=== PATIENT | male | born 1940 | race Caucasian/White ===

== ENCOUNTER → 2017-05-29 | Outpatient (CLI) | payer OTHER, MEDICARE | LOC: FIMAGING 12:25 | PROVIDERS: ATTEND Specialist | DX: K80.20 Calculus of gallbladder without cholecystitis without obstruction (principal); I87.2 Venous insufficiency (chronic) (peripheral); Z96.641 Presence of right artificial hip joint ==

== ENCOUNTER → 2017-07-24 | Outpatient (CLI) | payer OTHER, MEDICARE | LOC: FIMAGING 09:16 | PROVIDERS: ATTEND Physician Assistant Medical | DX: K80.20 Calculus of gallbladder without cholecystitis without obstruction (principal) ==

== ENCOUNTER → 2017-10-07 | Outpatient (CLI) | payer OTHER, MEDICARE | LOC: FIMAGING 09:21 | PROVIDERS: ATTEND Specialist | DX: K80.20 Calculus of gallbladder without cholecystitis without obstruction (principal) ==

== ENCOUNTER 2017-10-16 07:35 | Day surgery (SDC) | payer OTHER, MEDICARE ==
[2017-10-16] MEDS ORDERED: GLUCAGON HCL 1 MG VIAL IVP PRN (07:54)
[2017-10-16] MEDS ORDERED: PROTAMINE SULFATE 50 MG/5 ML VIAL IVP PRN (07:54)
[2017-10-16] MEDS ORDERED: NALOXONE HCL 0.4 MG/ML INJ IVP PRN (07:54)
[2017-10-16] MEDS ORDERED: MEPERIDINE 25 MG/ML SYR IVP PRN (07:54)
[2017-10-16] MEDS ORDERED: fentaNYL 100 MCG/2 ML INJ IVP PRN (07:54)
[2017-10-16] MEDS ORDERED: MIDAZOLAM 2 MG/2 ML VIAL IVP PRN (07:54)
[2017-10-16] MEDS ORDERED: HEPARIN 10,000 UNIT/10 ML MDV IVP PRN (07:54)
[2017-10-16] MEDS ORDERED: FLUMAZENIL 0.5 MG/5 ML MDV IVP PRN (07:54)
[2017-10-16] MEDS ORDERED: ALTEPLASE 2 MG VIAL IVP PRN (07:54)
[2017-10-16] MEDS ORDERED: NS 1,000 ML IV SCH (08:00)
[2017-10-16 08:29] LABS: HEMATOCRIT 41.2 % (40.0-51.0)
[2017-10-16 08:38] LABS: INR 1.11 (0.83-1.16); PROTIME(PATIENT) 14.5 SEC (12.0-15.0)
[2017-10-16 08:39] LABS: APTT 27.2 SEC (23.0-38.0)
--- NOTE | 2017-10-16 09:06 | PDGENHP ---
History & Physical Chief Complaint: Left kidney stone History of Present Illness: Bilateral renal stones and staghorn left renal calculus Pertinent Past, Social, Family History: Orthopedic surgery 3 years ago Cardiorespiratory Assessment: Lungs: clear. Heart: RRR no murmur; 72 bpm.
--- NOTE | 2017-10-16 09:07 | PDPROPOC ---
Sedation Plan of Care Sedation Plan of Care: vital signs stable, mental status noted, patient educated of risks, benefits, alternatives, patient can tolerate sedation ASA Classification: ASA 2 Planned drugs: fentanyl Mallampati Score: Class 3 Mallampati Reference Image: Patient passed 3-3-2 rule?: Yes
[2017-10-16] MEDS ORDERED: IOPAMIDOL (ISOVUE-300) 100 ML BTL ONE (10:20)
[2017-10-16] MEDS ORDERED: IOPAMIDOL (ISOVUE-370) 150 ML BTL IV ONE (10:21)
[2017-10-16 10:37] VITALS: RESP 14
[2017-10-16 10:59] VITALS: TEMP 97.7
[2017-10-16] MEDS ORDERED: ACETAMINOPHEN 325 MG TAB PO PRN (11:19)
[2017-10-16] MEDS ORDERED: ONDANSETRON 4 MG/2 ML VIAL IVP PRN (11:19)
--- NOTE | 2017-10-16 11:19 | PDRADPN ---
Radiology Procedure Note Date of Procedure: 10/16/17 Radiologist: Ricardo Hand Anesthesia: Other (Specify) (IV fentanyl only) Pre-op Diagnosis: Left renal stone Post-op Diagnosis: same Indication: UTI. Access needed for percutaneous nephrostolithotomy (tomorrow). Procedure: Percutaneous left nephrostomy Finding(s): Left Neph tube in good position. Inf/Abcess present in the surg proc area at time of surgery?: No EBL: Minimal Complications: 0 Drains: Nephrostomy (10 F) Specimen(s): 0
[2017-10-16 11:43] VITALS: O2SAT 93
[2017-10-16 12:44] VITALS: BP 121/74; PULSE 68
== END 2017-10-16 13:10 | disposition home or self-care (01) ==
LOC: FIMAGING 07:35
PROVIDERS: ATTEND Radiology Diagnostic Radiology
PROC: 0T9430Z Drainage of Left Kidney Pelvis with Drainage Device, Percutaneous Approach (ICD-10-PCS; principal; 2017-10-16)
PROC: BT1F1ZZ Fluoroscopy of Left Kidney, Ureter and Bladder using Low Osmolar Contrast (ICD-10-PCS; principal; 2017-10-16)
DX: N20.0 Calculus of kidney (principal); N39.0 Urinary tract infection, site not specified; E11.9 Type 2 diabetes mellitus without complications; Z79.84 Long term (current) use of oral hypoglycemic drugs
CPT/HCPCS: 50432; 99152; C1729; C1769; J0696; J1644; J2310; J3010; Q9967

== ENCOUNTER 2017-10-17 06:29 | Observation (INO) | payer OTHER, MEDICARE ==
[2017-10-17] MEDS ORDERED: LR 1,000 ML IV ONE (06:53)
[2017-10-17] MEDS ORDERED: MINERAL OIL 10 ML VIAL ONE (07:37)
[2017-10-17] MEDS ORDERED: IOPAMIDOL (ISOVUE-300) 100 ML BTL ONE (07:37)
--- NOTE | 2017-10-17 07:42 | PDANEPAE ---
ANE Past Medical History - Cardiovascular History Hx Hypertension: Yes Hx Arrhythmias: No Hx Chest Pain: No Hx Coronary Artery / Peripheral Vascular Disease: No Hx CHF / Valvular Disease: No Hx Palpitations: No - Pulmonary History Hx COPD: No Hx Asthma/Reactive Airway Disease: No Hx Recent Upper Respiratory Infection: No Hx Oxygen in Use at Home: No Hx Sleep Apnea: Yes Sleep Apnea Screening Result - Last Documented: Positive - Neurologic History Hx Cerebrovascular Accident: No Hx Seizures: No Hx Dementia: No - Endocrine History Hx Diabetes: Yes Obesity: yes - Renal History Hx Renal Disorders: Yes Renal History Comment: left kidney stones - Liver History Hx Hepatic Disorders: No - Neurological & Psychiatric Hx Hx Neurological and Psychiatric Disorders: No - Cancer History Hx Cancer: Yes Cancer History Comment: forehead basal cell - Congenital Disorder History Hx Congenital Disorders: No - GI History GERD: no Hx Gastrointestinal Disorders: No - Other Health History Other Health History: bruises easily - Chronic Pain History Chronic Pain: No - Surgical History Prior Surgeries: R shoulder surgery. R hip replacement ANE Review of Systems Review of systems is: negative Review of Systems: - Exercise capacity METS (RN): 5 METS ANE Patient History - Allergies Allergies/Adverse Reactions: Sulfa (Sulfonamide Antibiotics) Allergy (Mild, Verified 10/11/17 13:57) Rash midazolam [From Versed] Allergy (Verified 10/11/17 14:12) Other-Enter Comments - Home Medications Home medications: home medication list seen and reviewed Home Medications: Flurbiprofen 100 mg PO DAILY PRN 09/10/17 [Last Taken 10/15/17] Herbals/Supplements -Info Only 1 ea PO BID 09/10/17 [Last Taken 10/10/17] Lisinopril [Zestril 10 mg (*)] 10 mg PO DAILY 09/10/17 [Last Taken 10/17/17] Multivitamins [Multivitamin (*)] 1 each PO DAILY 09/10/17 [Last Taken 10/10/17] glipiZIDE [Glucotrol] 5 mg PO DAILY 09/10/17 [Last Taken 10/17/17] metFORMIN HCL [Glucophage 500 mg (*)] 1,000 mg PO BIDMEAL 09/10/17 [Last Taken 10/17/17] - NPO status NPO Since - Liquids (Date): 10/16/17 NPO Since - Liquids (Time): 20:00 NPO Since - Solids (Date): 10/16/17 NPO Since - Solids (Time): 19:00 - Anes Hx Anes Hx: no prior problems - Smoking Hx Smoking Status: Former smoker - Family Anes Hx Family Hx Anesthesia Complications: denies ANE Labs/Vital Signs - Vital Signs Blood Pressure: 161/87 Heart Rate: 95 Respiratory Rate: 18 O2 Sat (%): 93 Height: 179.07 cm Weight: 87.09 kg ANE Physical Exam - Airway Neck exam: FROM Mallampati Score: Class 1 Mouth exam: normal dental/mouth exam - Pulmonary Pulmonary: no respiratory distress - Cardiovascular Cardiovascular: regular rate and rhythym - ASA Status ASA Status: III ANE Anesthesia Plan Anesthesia Plan: general endotracheal anesthesia
[2017-10-17] MEDS ORDERED: levOFLOXACIN 500 MG/DEXTROSE 100 ML IV ONE (07:47)
[2017-10-17] MEDS ORDERED: fentaNYL 250 MCG/5 ML INJ ONE (07:48)
[2017-10-17] MEDS ORDERED: PROPOFOL 200 MG/20 ML VIAL ONE (07:48)
[2017-10-17] MEDS ORDERED: ROCURONIUM 100 MG/10 ML VIAL ONE (07:53)
[2017-10-17] MEDS ORDERED: SUGAMMADEX SODIUM 200 MG/2 ML VIAL IVP ONE (07:54)
[2017-10-17] MEDS ORDERED: ONDANSETRON 4 MG/2 ML VIAL ONE (07:54)
--- NOTE | 2017-10-17 09:01 | POSTOPPROG ---
Post Op Note Date of Operation: 10/17/17 Surgeon: Ivan Ken (# [id number]) Anesthesia: GET(General Endotracheal) Pre-op Diagnosis: 2.5 cm left renal calculus Post-op Diagnosis: 2.5 cm left renal calculus Procedure: 1. PCNL w/ fluoro guidance 2. Left neph. tube placement Findings: See op note Inf/Abcess present in the surg proc area at time of surgery?: No Drains: Nephrostomy (left 14 Fr.) Specimen(s): Left renal calculus fragments
[2017-10-17] MEDS ORDERED: HYDROCODONE/APAP 5/325 TAB PO PRN (09:51)
[2017-10-17] MEDS ORDERED: NALOXONE HCL 0.4 MG/ML INJ IVP PRN (09:51)
[2017-10-17] MEDS ORDERED: ONDANSETRON 4 MG/2 ML VIAL IVP PRN (09:51)
[2017-10-17] MEDS ORDERED: PROMETHAZINE HCL 25 MG/ML INJ IVP PRN (09:51)
[2017-10-17] MEDS ORDERED: ACETAMINOPHEN 500 MG TAB PO PRN (09:51)
[2017-10-17] MEDS ORDERED: HYDROmorphONE/DILAUDID 1 MG/ML INJ IVP PRN ×2 (09:51→11:30)
[2017-10-17] MEDS ORDERED: ALBUTEROL 3 ML DEYVIAL IH PRN (09:51)
[2017-10-17] MEDS ORDERED: OXYCODONE/APAP 5/325 TAB PO PRN (09:51)
--- NOTE | 2017-10-17 10:31 | PDHPUP ---
History & Physical Update H&P update statement: This history and physical update is based on an assessment of the patient which was completed after admission or registration (within 24 hours), but prior to the surgery/procedure. H&P update: no change in patient's condition since H&P completed
[2017-10-17] MEDS ORDERED: fentaNYL 100 MCG/2 ML INJ ONE (10:47)
[2017-10-17] MEDS: fentaNYL 100 MCG/2 ML INJ IVP PRN ×2 (10:48→10:59)
[2017-10-17 10:57] LABS: % IMMATURE GRANULYOCYTES 0.4 % (0.0-1.1); ABSOLUTE IMMATURE GRANULOCYTES 0.04 10^3/uL (0.00-0.10); ADD DIFF? NO; ADD MORPH? NO; ADD SCAN? NO; ATYPICAL LYMPHOCYTE FLAG 0 (0-99); FRAGMENT RBC FLAG 0 (0-99); HEMATOCRIT 37.6 % (40.0-51.0); HEMOGLOBIN 13.1 g/dL (13.7-17.5); LEFT SHIFT FLG 0 (0-99); LIPEMIA HEMOLYSIS FLAG 90 (0-99); MEAN CELL HEMOGLOBIN 32.1 pg (27.9-34.1); MEAN CELL HEMOGLOBIN CONCENTR. 34.8 g/dL (32.4-36.7); MEAN CELL VOLUME 92.2 fL (81.5-99.8); MEAN PLATELET VOLUME 9.6 fL (8.7-11.7); PLATELET CLUMPS FLAG 40 (0-99); PLATELET COUNT 98 10^3/uL (150-400); RED BLOOD CELL COUNT 4.08 10^6/uL (4.40-6.38); RED CELL DISTRIBUTION WIDTH 13.4 % (11.5-15.2)
[2017-10-17] MEDS: INSULIN REGULAR HUMAN 100 UNIT/ML SC SCH ×3 (12:35→21:45)
[2017-10-17] MEDS: NS 1,000 ML IV SCH ×2 (12:58→17:56)
[2017-10-17] MEDS: OXYCODONE/APAP 5/325 TAB PO PRN ×2 (16:46→20:55)
--- NOTE | 2017-10-17 19:29 | GOP ---
[f rep st] OPERATIVE REPORT DATE OF OPERATION: 10/17/2017 SURGEON: Ivan Ken MD ANESTHESIA: General endotracheal. PREOPERATIVE DIAGNOSIS: Approximately 2.5 cm left renal calculus. POSTOPERATIVE DIAGNOSIS: Approximately 2.5 cm left renal calculus. PROCEDURE PERFORMED: 1. Left-sided percutaneous nephrostolithotomy with intermittent fluoroscopic guidance greater than 1 hour. 2. Left-sided nephrostomy tube placement with fluoroscopic guidance. FINDINGS: Large left renal calculus. SPECIMENS: Left renal calculus fragments. ESTIMATED BLOOD LOSS: Less than 100 cc. INDICATIONS: This patient presented presents today for surgical management of his large left renal p elvic calculus. He underwent nephrostomy tube placement yesterday in Interventional Radiology in pre paration for today's surgery. The indications for the procedures as well as potential risks and comp lications were discussed with the patient preoperatively. He appeared to understand, his questions w ere answered, and he wished to proceed. Written informed surgical consent was thereafter obtained. DESCRIPTION OF PROCEDURE: The patient was brought to the operating room and administered general end otracheal anesthesia. A Can catheter was placed to gravity drainage. The patient was then placed carefully in the prone position. All appropriate pressure points were padded. The left-sided nephro stomy tube and surrounding portion of his back were sterilely prepped and draped in standard fashion. The nephrostomy tube was prepped into the field. Dr. Hand from Interventional Radiology then pro ceeded to place a balloon occlusion catheter in an antegrade fashion across the ureteropelvic junctio n, then placed a working 32-Burkinan nephroscopic sheath. I then started the operative portion of the procedure with a rigid nephroscope. The calculus was seen within the lower pole infundibulum and ext ending into the renal pelvis. The ultrasonic Lithotripter was used to perform lithotripsy on the [facility] [place]. All the fragments that were created and not evacuated through the ultrasonic Lithotripter were r emoved with rigid grasping forceps through the nephroscope unremarkably. Once all of the calculus navarro d been treated that could be seen through the rigid nephroscope, I inserted a flexible cystoscope and performed nephroscopy of all the visible calices. No residual stone fragments were seen. The scope was then removed and a 14-Burkinan nephrostomy tube placed under fluoroscopic guidance with a pigtail created in the renal pelvis. It should be mentioned that during the percutaneous nephrostolithotomy portion of the procedure, inte rmittent spot fluoroscopy was utilized as well. After placement of nephrostomy tube, the working nephroscopic sheath had already been removed. The b alloon occlusion catheter was also removed. All guidewires had been removed. Contrast was injected through the nephrostomy tube to confirm proper placement. It was then flushed appropriately without difficulty. A 3-0 silk stitch was used to secure the nephrostomy tube to the skin. The pigtail had already been locked by this point. The nephrostomy tube was dressed in standard fashion utilizing a ski slope dressing, 4x4s, and Tegaderm. The nephrostomy tube was connected to bag drainage. The pat ient was then carefully turned back over to the supine position. He was extubated, transferred to [facility] bed, then taken to the recovery room. He tolerated the procedure well overall. COMPLICATIONS: None. DRAINS: A 14-Burkinan left-sided nephrostomy tube. DISPOSITION: He was transferred to the recovery room in stable condition and will be admitted [facility] for postoperative care. /[id number]/MODL
[2017-10-17] MEDS ORDERED: 1/2 NS 1,000 ML IV SCH (19:30)
[2017-10-17] MEDS: metFORMIN HCL 500 MG TAB PO SCH (20:54)
[2017-10-18] MEDS: OXYCODONE/APAP 5/325 TAB PO PRN ×2 (04:14→11:18)
[2017-10-18 05:24] LABS: HEMOGLOBIN 13.5 g/dL (13.7-17.5); MEAN CELL HEMOGLOBIN 32.9 pg (27.9-34.1); MEAN CELL HEMOGLOBIN CONCENTR. 35.5 g/dL (32.4-36.7); MEAN CELL VOLUME 92.7 fL (81.5-99.8); RED BLOOD CELL COUNT 4.1 10^6/uL (4.40-6.38); RED CELL DISTRIBUTION WIDTH 13.6 % (11.5-15.2)
[2017-10-18 05:37] LABS: ANION GAP 13 mEq/L (8-16); CALCIUM 8.6 mg/dL (8.5-10.4); CARBON DIOXIDE 21 mEq/l (22-31); CHLORIDE 106 mEq/L (97-110); CREATININE 1.4 mg/dL (0.7-1.3); GLOMERULAR FILTRATION RATE 49; GLUCOSE 101 mg/dL (70-100); POTASSIUM 4.3 mEq/L (3.5-5.2); SODIUM 140 mEq/L (134-144)
[2017-10-18 08:17] VITALS: RESP 18
[2017-10-18] MEDS ORDERED: glipiZIDE 5 MG TAB PO SCH (09:00)
[2017-10-18] MEDS ORDERED: LISINOPRIL 10 MG TAB PO SCH (09:00)
[2017-10-18] MEDS: metFORMIN HCL 500 MG TAB PO SCH (09:19)
[2017-10-18] MEDS: INSULIN REGULAR HUMAN 100 UNIT/ML SC SCH ×2 (09:20→12:45)
[2017-10-18 12:23] VITALS: BP 153/77; PULSE 93; TEMP 98.6; O2SAT 92
--- NOTE | 2017-10-18 13:44 | SOAPPROG ---
SOAP Progress Note Assessment/Plan: Assessment: POD 1 s/p left PCNL - stable. Plan: 1. D/C home w/ neph. tube & narcotics. 2. Other instructions and orders given. Subjective: Complains of some LLQ pain that is controlled with narcotics. No other complaints. Objective: Vital Signs Temp Pulse Resp BP Pulse Ox 37.0 C 93 18 153/77 H 92 10/18/17 12:22 10/18/17 12:22 10/18/17 12:22 10/18/17 12:22 10/18/17 12:22 Laboratory Results 10/18/17 04:32 10/18/17 04:32 10/17/17 10/18/17 10/19/17 05:59 05:59 05:59 Intake Total 3546 Output Total 1365 500 Balance 2181 -500 Physical Exam - Physical Exam General Appearance: WD/WN, alert, no apparent distress Abdomen: soft, other (mild focal LLQ tenderness) Back: Other (left neph. 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
--- NOTE | 2017-10-18 14:19 | GDS ---
[f rep st] DISCHARGE SUMMARY ADMITTING DIAGNOSIS: Large volume left nephrolithiasis. DISCHARGE DIAGNOSIS: Large volume left nephrolithiasis. PROCEDURE: Left percutaneous nephrostolithotomy on 10/17/2017. HOSPITAL COURSE: Refer to the operative report for details regarding the procedure. The day prior t o hospital admission, the patient underwent left-sided nephrostomy tube placement in Interventional R adiology. Postoperatively, the patient did well. His vital signs were stable and he was afebrile. His postoperative laboratory work was unremarkable. He did have some left lower quadrant abdominal p ain intermittently which was controlled with oral narcotics p.r.n. He is otherwise doing well. He i s voiding well following a Can removal. He was ready for discharge on postoperative day 1. He is to continue on his regular medications as well as oxycodone p.r.n. pain. Activity restriction instructions have been provided. He will continue regular diet. He will return to Interventional Ra diology on Saturday for an antegrade nephrostogram and probable nephrostomy tube removal at that time. He will then return to my office in approximately 4 weeks with a noncontrast CT scan to be performed just prior to that followup. /[id number]/MODL
[2017-10-22 12:30] LABS: SOURCE OF STONE LEFT RENAL CALCULI
[2017-10-22 12:31] LABS: NIDUS NOT OBSERVED
== END 2017-10-18 15:55 | disposition home or self-care (01) ==
LOC: EEVIPCON 06:29 → F3N 06:29 → EEVIPCON 08:00 → F1N 11:56
PROVIDERS: ADMIT Specialist; ATTEND Specialist
PROC: 0T9130Z Drainage of Left Kidney with Drainage Device, Percutaneous Approach (ICD-10-PCS; principal; 2017-10-17 08:00)
PROC: 0TL Urinary System, Occlusion (ICD-10-PCS; principal; 2017-10-17 08:00)
PROC: 0TC14ZZ Extirpation of Matter from Left Kidney, Percutaneous Endoscopic Approach (ICD-10-PCS; principal; 2017-10-17 08:00)
DX: N20.0 Calculus of kidney (principal); I10 Essential (primary) hypertension; E11.9 Type 2 diabetes mellitus without complications; E66.9 Obesity, unspecified
CPT/HCPCS: 50081; 50395; 74485; 75984; C1725; C1729; C1769; J1644; J1956; J2405; J2704; J3010; Q9967; 82365-90

== ENCOUNTER → 2017-10-21 | Day surgery (SDC) | payer OTHER, MEDICARE ==
[~2017-10-21] MED LIST: IOPAMIDOL (ISOVUE-300) 100 ML BTL ONE
== END | disposition home or self-care (01) ==
LOC: FIMAGING 12:57
PROVIDERS: ATTEND Specialist
PROC: 0TP530Z Removal of Drainage Device from Kidney, Percutaneous Approach (ICD-10-PCS; principal; 2017-10-21)
DX: N20.0 Calculus of kidney (principal); N13.5 Crossing vessel and stricture of ureter without hydronephrosis
CPT/HCPCS: Q9967

== ENCOUNTER → 2017-10-29 | Outpatient (CLI) | payer OTHER, MEDICARE | LOC: CIMAGING 09:57 | PROVIDERS: ATTEND Specialist | DX: N20.0 Calculus of kidney (principal); K80.20 Calculus of gallbladder without cholecystitis without obstruction; R59.0 Localized enlarged lymph nodes | CPT/HCPCS: 74176-PO ==

== ENCOUNTER → 2018-12-10 | Outpatient (CLI) | payer OTHER, MEDICARE | LOC: FIMAGING 09:55 | PROVIDERS: ATTEND Specialist | DX: K80.20 Calculus of gallbladder without cholecystitis without obstruction (principal); Z87.442 Personal history of urinary calculi; Z96.641 Presence of right artificial hip joint ==

== ENCOUNTER → 2019-04-02 | Outpatient (CLI) | payer OTHER, MEDICARE | LOC: EMCIMAGING 09:27 | PROVIDERS: ATTEND Surgery | DX: E11.621 Type 2 diabetes mellitus with foot ulcer (principal); L03.115 Cellulitis of right lower limb; M86.171 Other acute osteomyelitis, right ankle and foot | CPT/HCPCS: 73720-PN ==

== ENCOUNTER 2019-04-09 06:56 | Day surgery (SDC) | payer OTHER, MEDICARE ==
[2019-04-09] MEDS ORDERED: ceFAZolin 2 GM/DEXTROSE 100 ML IV ONE (07:20)
[2019-04-09] MEDS ORDERED: LR 1,000 ML IV ONE (07:21)
[2019-04-09] MEDS ORDERED: LIDOCAINE 1% 2 ML INJ ID PRN (07:21)
[2019-04-09] MEDS ORDERED: BUPIVACAINE 0.5% 30 ML SDV ONE (07:40)
--- NOTE | 2019-04-09 08:09 | PDHPUP ---
History & Physical Update H&P update statement: This history and physical update is based on an assessment of the patient which was completed after admission or registration (within 24 hours), but prior to the surgery/procedure. H&P update: H&P reviewed & patient examined, changes noted (Swelling left hand. Will get x ray)
--- NOTE | 2019-04-09 08:16 | POSTOPPROG ---
Post Op Note Date of Operation: 04/09/19 Surgeon: Tammy Sharif Anesthesiologist: chris Anesthesia: GET(General Endotracheal) Pre-op Diagnosis: Right great toe osteomylitis Post-op Diagnosis: same Indication: 78 yo with osteo Procedure: R great toe amputation Inf/Abcess present in the surg proc area at time of surgery?: Yes Depth: Deep Incisional (Fascial) EBL: Minimal Specimen(s): toe for micro and path
[2019-04-09] MEDS ORDERED: ONDANSETRON 4 MG/2 ML VIAL ONE (08:23)
[2019-04-09] MEDS ORDERED: fentaNYL 100 MCG/2 ML INJ ONE (08:23)
[2019-04-09] MEDS ORDERED: PROPOFOL 200 MG/20 ML VIAL ONE (08:24)
--- NOTE | 2019-04-09 08:29 | PDANEPAE ---
ANE Past Medical History - Cardiovascular History Hx Hypertension: Yes Hx Arrhythmias: No Hx Chest Pain: No Hx Coronary Artery / Peripheral Vascular Disease: No Hx CHF / Valvular Disease: No Hx Palpitations: No - Pulmonary History Hx COPD: No Hx Asthma/Reactive Airway Disease: No Hx Recent Upper Respiratory Infection: No Hx Oxygen in Use at Home: No Hx Sleep Apnea: Yes Sleep Apnea Screening Result - Last Documented: Positive - Neurologic History Hx Cerebrovascular Accident: No Hx Seizures: No Hx Dementia: No - Endocrine History Hx Diabetes: Yes Endocrine History Comment: niddm - Renal History Hx Renal Disorders: Yes Renal History Comment: left kidney stones. e-coli 2013 urine - Liver History Hx Hepatic Disorders: No - Neurological & Psychiatric Hx Hx Neurological and Psychiatric Disorders: No - Cancer History Hx Cancer: Yes Cancer History Comment: forehead basal cell - Congenital Disorder History Hx Congenital Disorders: No - GI History Hx Gastrointestinal Disorders: No - Other Health History Other Health History: bruises easily - Chronic Pain History Chronic Pain: No - Surgical History Prior Surgeries: R shoulder surgery. R hip replacement. kidney stones ANE Review of Systems Review of Systems: - Exercise capacity METS (RN): 4 METS ANE Patient History - Allergies Allergies/Adverse Reactions: Sulfa (Sulfonamide Antibiotics) Allergy (Mild, Verified 04/09/19 08:19) Rash midazolam [From Versed] Allergy (Verified 04/09/19 08:19) Other-Enter Comments - Home Medications Home Medications: Flurbiprofen 100 mg PO DAILY PRN 09/10/17 [Last Taken 04/09/19 06:00] Herbals/Supplements -Info Only 1 ea PO BID 09/10/17 [Last Taken 04/09/19 06:00] Lisinopril [Zestril 10 mg (*)] 10 mg PO DAILY 09/10/17 [Last Taken 04/09/19 06: 00] Multivitamins [Multivitamin (*)] 1 each PO DAILY 09/10/17 [Last Taken 04/09/19 06:00] glipiZIDE [Glucotrol 5 mg] 5 mg PO DAILY 09/10/17 [Last Taken 04/09/19 06:00] metFORMIN HCL [Glucophage 500 mg (*)] 1,000 mg PO BIDMEAL 09/10/17 [Last Taken 04/09/19 06:00] Jardiance 04/09/19 [Last Taken 04/09/19 06:00] Keflex 04/09/19 [Last Taken 04/09/19 02:00] - NPO status NPO Since - Liquids (Date): 04/09/19 NPO Since - Liquids (Time): 05:00 NPO Since - Solids (Date): 04/08/19 NPO Since - Solids (Time): 19:00 - Smoking Hx Smoking Status: Former smoker - Family Anes Hx Family Hx Anesthesia Complications: denies ANE Labs/Vital Signs - Vital Signs Blood Pressure: 134/85 Heart Rate: 89 Respiratory Rate: 14 O2 Sat (%): 93 Height: 177.8 cm Weight: 84.822 kg ANE Physical Exam - Airway Neck exam: FROM Mallampati Score: Class 2 Mouth exam: normal dental/mouth exam - Pulmonary Pulmonary: no respiratory distress, no rales or rhonchi, clear to auscultation - Cardiovascular Cardiovascular: regular rate and rhythym, no murmur, rub, or gallop - ASA Status ASA Status: III ANE Anesthesia Plan Anesthesia Plan: GA w LMA
--- NOTE | 2019-04-09 08:29 | POSTANESTH ---
Post Anesthetic Evaluation Cardiovascular Status: Normal, Stable Respiratory Status: Normal, Stable Level of Consciousness/Mental Status: Can Participate in Eval Pain Control: Adequate, Prn Tx Ordered Nausea/Vomiting Control: Adequate, Prn Tx Ordered Complications Possibly Related to Anesthesia: None Noted
[2019-04-09] MEDS ORDERED: PHENYLEPHRINE HCL 100 MCG/ML SYR ONE (08:53)
[2019-04-09] MEDS ORDERED: METOCLOPRAMIDE 10 MG/2 ML VIAL ONE (09:02)
[2019-04-09] MEDS ORDERED: PHENYLEPHRINE HCL 100 MCG/ML SYR IVP PRN (09:09)
[2019-04-09] MEDS ORDERED: HYDROmorphONE/DILAUDID 1 MG/ML INJ IVP PRN (09:09)
[2019-04-09] MEDS ORDERED: MEPERIDINE 25 MG/0.5 ML AMP IVP PRN (09:09)
[2019-04-09] MEDS ORDERED: NALOXONE HCL 0.4 MG/ML INJ IVP PRN (09:09)
[2019-04-09] MEDS ORDERED: NS 500 ML IV PRN (09:09)
[2019-04-09] MEDS ORDERED: ALBUTEROL 3 ML DEYVIAL IH PRN (09:09)
[2019-04-09] MEDS ORDERED: PROMETHAZINE HCL 25 MG/ML INJ IVP PRN (09:09)
[2019-04-09] MEDS ORDERED: HYDROCODONE/APAP 5/325 TAB PO PRN (09:09)
[2019-04-09] MEDS ORDERED: fentaNYL 100 MCG/2 ML INJ IVP PRN (09:09)
[2019-04-09] MEDS ORDERED: LR 500 ML IV PRN (09:09)
[2019-04-09] MEDS ORDERED: ONDANSETRON 4 MG/2 ML VIAL IVP PRN (09:09)
[2019-04-09 11:30] VITALS: BP 114/65
--- NOTE | 2019-04-09 14:48 | GOP ---
[f rep st] OPERATIVE REPORT DATE OF OPERATION: 04/09/2019 SURGEON: Tammy Sharif MD ANESTHESIA: General. ANESTHESIOLOGIST: Aniceto Peralta MD. PREOPERATIVE DIAGNOSIS: Right great toe osteomyelitis. POSTOPERATIVE DIAGNOSIS: Right great toe osteomyelitis. PROCEDURE PERFORMED: Amputation distal right great toe. FINDINGS: Ulcer on distal tuft. SPECIMENS: Distal toe for Pathology. Proximal margin inked blue for Pathology and bone for Microbio logy. ESTIMATED BLOOD LOSS: 5 cc. INDICATIONS: Og Yanes is an 78-year-old man who has osteomyelitis of his right great toe. He al so reports pain and erythema of his right hand. Preoperative x-ray did not show any broken bones. DESCRIPTION OF PROCEDURE: Patient was brought into the operating room, placed supine on the table, a nd general anesthesia was administered. His foot was prepped and draped in the usual sterile fashion . I infiltrated the area with 0.5% Marcaine with epinephrine prior to making incisions. I made an i ncision around the ulcer on the toe, extending this anteriorly below the toenail. I used a periostea l elevator to remove the soft tissue from the bone. I used a saw to transect the bone. I submitted the distal tuft for Pathology. I took a 2nd specimen, submitted this for Microbiology, and a 3rd spe cimen with the ink tangela proximal for Pathology. Hemostasis was achieved. I removed some of the soft tissues that I could get the skin to close. I closed the skin with 2-0 nylon using a combination of horizontal mattress and interrupted sutures. Sterile dressing was applied. I then used the ultraso und in the operating room and did not see a distinct fluid collection in his left hand. He was awake macy in the operating room, extubated, transferred to PACU in stable condition. /[id number]/MODL
== END 2019-04-09 11:35 | disposition home or self-care (01) ==
LOC: UNDOADMOB 06:56 → F3N 06:56 → FSGY 06:56 → EDSTATUS 08:30 → FSGY 11:35
PROVIDERS: ATTEND Surgery
PROC: 0Y6P0Z3 Detachment at Right 1st Toe, Low, Open Approach (ICD-10-PCS; principal; 2019-04-09 08:30)
DX: M86.9 Osteomyelitis, unspecified (principal); M79.641 Pain in right hand
CPT/HCPCS: J0690; J2370; J2405; J2704; J2765; J3010

== ENCOUNTER 2019-04-19 12:08 | Inpatient (IN) | payer OTHER, MEDICARE | END 2019-04-21 14:10 | disposition home or self-care (01) | LOC: F1N 18:05 ==